=== PATIENT | male | born 1955 | race Caucasian/White ===

== ENCOUNTER 2020-07-18 11:19 | Inpatient (IN) | payer OTHER, MEDICARE, SELFPAY ==
[2020-07-18] VITALS (22 sets, daily range): BP systolic 107–141; BP diastolic 80–92; PULSE 79–98; RESP 12–26; TEMP 36.1–37.1; O2SAT 90–99; BMI 33.5
--- NOTE | ~2020-07-18 | XR_ITS ---
XR chest 1V portable DATE: 07/19/2020 12:32 INDICATION: Shortness of breath TECHNIQUE: Portable AP chest on 07/19/2022 at 1226 hours COMPARISON: None FINDINGS: There are patchy bilateral pulmonary infiltrates, predominating in the central and lower shilpa ng zones, right greater than left. There is mild prominence of the minor fissure and there are some K [place]ley B-lines bilaterally, suggesting subpleural and pulmonary interstitial edema. The findings may b e due to pulmonary edema. Bilateral pneumonia however is also a consideration in the differential alyson gnosis. Clinical correlation is advised. Aortic arch calcification and mild aortic unfolding. No pleural effusion. No pneumothorax. Degenerative spurring of the thoracic spine. IMPRESSION: Bilateral primarily central and lower lung zone infiltrates, right greater than left; dif ferential diagnosis includes pulmonary edema and pneumonia Reviewed, dictated and finalized at location B. OR PIER LABORER IMPRESSION: Bilateral primarily central and lower lung zone infiltrates, right greater than left; differential diagnosis includes pulmonary edema and pneumoni a
--- NOTE | ~2020-07-18 | US_ITS ---
EXAMINATION: US art doppler w press LE BI DATE: 07/20/2020 17:17 SPORTS DOCTOR INDICATION: Decreased pulses. TECHNIQUE: Segmental pressures and plethysmographic and Doppler waveforms of the brachial and lower e xtremity arteries were obtained. COMPARISON: None. FINDINGS: Right and left brachial artery pressures of 107 mm Hg and 112 mm Hg, respectively, are concordant (no rmal difference <= 30 mmHg). The right high-thigh pressure index is 1.29 (normal > 1.2). The right ankle-brachial index (MARTHA) is 1 .15 (normal >= 0.9-1.0). The right great toe-brachial index (TBI) is 1.21 (normal >= 0.60). The right lower extremity segmental pressure gradients are normal (normal gradients <= 20-30 mmHg between britney cent levels on the same leg or the same levels on the two legs). Arterial Doppler waveforms are bipha sic and triphasic. The left high-thigh pressure index is 1.26. The left MARTHA is 1.18. The left TBI is 1.5 to. The left lo wer extremity segmental pressure gradients are normal. Arterial Doppler waveforms are biphasic and tr iphasic. IMPRESSION: 1. Unremarkable lower extremity arterial Doppler study. Reviewed, dictated and finalized at location A. TS DOCTOR
--- NOTE | 2020-07-18 11:20 | ECG_ITS ---
Measurements Intervals [place] Rate: 90 P: 47 WI: 187 QRS: -37 QRSD: 106 T: 53 QT: 371 QTc: 455 Interpretive Statements SINUS RHYTHM WITH MARKED SINUS ARRHYTHMIA LEFT AXIS DEVIATION LOW QRS VOLTAGE IN PRECORDIAL LEADS EXTENSIVE ANTERIOR ST ELEVATION MYOCARDIAL INFARCT, ACUTE HIGH LATERAL ST ELEVATION MYOCARDIAL INFARCT- ACUTE ABNORMAL ECG Electronically Signed On 07-18-2020 11:47:22 UR COORDINATOR by Jossue Lopes D.O.
--- NOTE | 2020-07-18 11:26 | PC.NURSE ---
Heparin given via IVP 5,000 units per STEMI protocol by Tessy Ceja RN. Pt. does not take any blood thinners or have contraindications for heparin.
--- NOTE | 2020-07-18 11:29 | ED.CHESTPAIN ---
HPI - Chest Pain General Chief Complaint: Chest Pain Stated Complaint: STEMI Time Seen by Provider: 07/18/20 11:24 Source: patient Mode of arrival: EMS Limitations: no limitations History of Present Illness HPI narrative: 64 years old white male developed severe chest pain 1 hour prior to arrival to the emergency room. Patient denies any medical history. Patient does not take any medications at home. Patient does not smoke or drink. Patient denies any family history of coronary artery disease. MD complaint: chest pain Review of Systems Review of Systems: Narrative: CONSTITUTIONAL: Denies fever, chills, or sweats. EYES: Denies visual changes, redness, or discharge. ENT: Denies rhinorrhea, congestion, sore throat, or otalgia. CARDIOVASCULAR: Denies chest pain, palpitations, or edema. RESPIRATORY: Denies cough or dyspnea. GASTROINTESTINAL: Denies abdominal pain, nausea, vomiting, or diarrhea. GENITOURINARY: Denies dysuria or hematuria. SKIN: Denies rash or itching. MUSCULOSKELETAL: Denies back pain, joint pain, or myalgia. NEUROLOGIC: Denies headache, numbness, or weakness. PSYCHIATRIC: Denies anxiety or depression. PMFSH Social History Social History Gender identity (if verbalized by the patient): Male Exam Narrative: Exam Narrative: General appearance: Well-developed, well-nourished Skin: Normal color Head: Normocephalic, nontraumatic Eyes: Clear conjunctiva ENT: Oropharynx normal, ears normal, nose normal Neck: Supple, nontender Chest and respiratory: Airway patent, no respiratory distress, no accessory muscle use Heart: Regular rate/rhythm Abdomen: Soft, nontender, no organomegaly, quiet bowel sounds Vascular: Normal peripheral pulses, normal capillary refill. Musculoskeletal: Normal range of motion, nontender back Neurologic: Alert and oriented ?3, HAND CUTTER is normal as tested, no gross motor deficit Course Course Emergency Course: Stable Vital Signs Vital signs: Vital Signs Temperature 36.5 C 07/18/20 11:24 Pulse Rate 94 07/18/20 11:24 Respiratory Rate 18 07/18/20 11:24 Blood Pressure 129/82 07/18/20 11:24 Pulse Oximetry 95 07/18/20 11:24 Temperature 36.5 C 07/18/20 11:24 Pulse Rate 94 07/18/20 11:24 Respiratory Rate 18 07/18/20 11:24 Blood Pressure 129/82 07/18/20 11:24 Pulse Oximetry 95 07/18/20 11:24 MDM - Chest Pain MDM Narrative Medical decision making narrative: Patient presents to the ED with STEMI Dr. Mantilla was in the emergency room waiting for the patient on arrival Patient going to cardiac cath right away. ECG Data EKG #1: Interpretation: Anterolateral ST elevation consistent with STEMI Critical Care Time Critical Care Time Critical Care Time: Yes Total Critical Care Time: 15 Discharge Plan Discharge Clinical Impression: ST elevation (STEMI) myocardial infarction Qualifiers: Involved coronary artery: unspecified coronary artery Qualified Code(s): I21.3 - ST elevation (STEMI) myocardial infarction of unspecified site Patient Disposition: Still a Patient Condition: Stable Quality HEART score for chest pain patients History: highly suspicioius ECG: significant ST depression Age: > or = to 65 years Risk factors: no risk factors known Troponin: > or = to 3x normal limit Heart score: 8
--- NOTE | 2020-07-18 11:32 | P.SEDATION_ITS ---
Moderate Sedation Note-Pt Data Patient Data Diagnosis: acute anterior wall myocardial infarction Present Complaint: chest pain Procedure to be performed/Plan: emergency left heart catheterization Current Medications: no medication Sedation/Anesthesia: No previous sedation/anesthesia problems (including family history). [facility] Social History Social History Gender identity (if verbalized by the patient): Male Mod Sed Physical Exam Physical Exam Pre Procedural Exam: Normal: Neck, Throat, Airway, Lungs, Heart Size, Heart Rate, Heart Rhythm, Neuro Exam and Extremities and Variation: Appearance ( 64-year-old white male appearing bit older than his stated age) Hours since solid foods: 0 Hours since liquid intake: 0 Internal Medicine - PN: Obj Da Vital Signs Vital Signs: Vital Signs - 24 hr 07/18/20 11:24 Temperature 36.5 C Pulse Rate 94 Respiratory Rate 18 Blood Pressure 129/82 Pulse Oximetry 95 ASA Classification/Sedation ASA Classification/Sedation ASA Class: IV Emergent: Yes Risks: Risks, benefits and alternatives explained and patient/family accepted plan for sedation. Patient re-evaluated immediately prior to sedation.
--- NOTE | 2020-07-18 11:35 | P.HP_ITS ---
H&P: HPI History of Present Illness Date/Time: 07/18/20 11:35 Cheif Complaint: chest pain Narrative: Steven Herrera is a 64 year old male no previous history of significant medical problems who began to experience chest pain about 1 hour ago. He is being brought to the hospital by EMS where ECG was found show evidence of acute anterior wall infarction. He denies any prior cardiac history and he reports no history of significant medical problems prior to this specifically denies hypertension diabetes or dyslipidemia. He has never been a smoker. Review of Systems Review of Systems: ROS unobtainable: Yes unobtainable due to medical condition PMFSH Social History Social History Gender identity (if verbalized by the patient): Male Meds Vital Signs Vital Signs - 24 hr 07/18/20 11:24 Temperature 36.5 C Pulse Rate 94 Respiratory Rate 18 Blood Pressure 129/82 Pulse Oximetry 95 Exam Const: General: in distress and uncomfortable Other: Well-developed well- nourished white male moderate distress with chest pain HENMT: Mouth: Yes moist mucous membranes Eyes: Sclera: sclerae normal Pupils: Equal, round and reactive pupils present Neck: Neck: supple and no JVD Resp: Effort & Inspection: normal respiratory effort Auscultation: clear to auscultation bilaterally Cardio: Rate: regular rate Rhythm: regular rhythm Other: no significant murmur S4 is audible GI: GI Palp: Yes Soft to palpation Auscultation: normal bowel sounds Skin: General skin exam: normal color Neuro: Cognition (Neuro): normal cognition Extrem: General: normal to inspection Assessment and Plan Additional Plan 64-year-old man apparently previously reasonably healthy presenting with acute anterolateral wall myocardial infarction. Preparations are now being made for emergency angiography and revascularization Cruzito Mantilla MD [facility]
--- NOTE | 2020-07-18 12:22 | WPDCARDPROC ---
Cardiac Cath Procedure Note Date of procedure:: 07/18/20 Performing physician:: Cruzito Mantilla MD Indication:: acute anterior wall infarction Brief clinical history:: 64-year-old man without previous medical or cardiac history presents with chest pain starting about 2 hours prior to presentation and ECG demonstrates acute anterolateral infarction. Procedure Procedure performed:: Emergency coronary angiography emergency PCI (ERNA) to ostial LAD segment left ventriculography Sedation/Medication given:: fentanyl 50 mg Versed 2 mg case start time 11:40 a.m. case end time 12:21 p.m. Access site:: right femoral artery Estimated blood loss:: 30-40 cc Procedure note:: patient was brought to the cardiac catheterization lab in the emergent setting described above. The right femoral triangle was prepared and draped in the usual fashion. Anesthesia was provided with 1% lidocaine infiltrated locally. Using the modified Seldinger technique a 6 Albanian sheath was placed into the femoral artery. After this a 5 Albanian JR4 catheter was advanced over the guidewire into the aorta but it was clear that the guidewire was finding on the catheter. Fluoroscopy down in the iliofemoral system demonstrated significant tortuosity which was the cause of this. I then over the 0.035 Saleem wire advanced a long 25 cm 6 Albanian sheath into the iliofemoral system which straightened out the tortuosity. Then a new JR4 catheter was easily advanced into the aortic root and angiography was performed of the right coronary artery. Following this a 6 Albanian CLS 3.5 guiding catheter was advanced into the aortic root engage the left coronary where angiography was performed. The cineangiograms were then reviewed. PCI of the occlusion of the LAD at the ostium was recommended carried out as detailed below. Following PCI as detailed below a 5 Albanian angled pigtail catheter was placed into the left ventricle where hemodynamics were measured pullback pressures across the aortic valve and left ventriculography was injected in the are AO projection. The case was then terminated. The patient was taken to the ICU for post AR PCI recovery. in the emergency department the patient received aspirin and heparin. 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 Findings:: Hemodynamics: Central aortic pressure was 104/65 left ventricle 102/13 end-diastolic pressure 30. a Left main coronary artery is nicely patent left anterior descending is 100% occluded just at the ostium there is a tiny stump of the LAD coming off the left main but the remainder of the LAD is 100% occluded with no antegrade flow. a The circumflex consists of a large proximal OM branch and a AV groove portion with smaller marginals. The 1st marginal takes off essentially as a ramus intermedius. The circumflex system is free of significant disease. Right coronary artery is large in caliber dominant to the posterior circulation the RCA has minimal luminal irregularities but angiographically free of significant disease. Intervention: The LAD was wired using a 0.014 BMW coronary guidewire. The lesion was pre-dilated using a 2.5 x 20 mm emerge PTCA balloon. Following this there was LAYA 1 flow in the LAD with large size thrombotic burden in the proximal segment of the vessel. Following that I withdrew the balloon and made several passes with an export thrombus extraction catheter removing a good deal of thrombus from the vessel. Following this angiographically the LAD was patent there was brisk LAYA 3 flow down to the apex and was a high-grade stenosis of 90% persistently. This lesion was then dilated with a larger 3 x 20 mm emerge balloon and then stented using a 3.5 x 23 mm Debbie Xience drug-eluting stent with a very nice anatomic result the stent was deployed at 12 atmospheres following which the vessel was widely patent wi
--- NOTE | 2020-07-18 12:23 | ECG_ITS ---
Measurements Intervals [place] Rate: 94 P: NM: 0 QRS: 267 QRSD: 121 T: 89 QT: 385 QTc: 482 Interpretive Statements SINUS RHYTHM CHANGES TO ACCLERATED JUNCTIONAL RHYTHM WITH VENTRICULAR BIGEMINY VENTRICULAR PREMATURE COMPLEXES CANNOT RULE OUT SEPTAL INFARCT, AGE INDETERMINATE ANTEROLATERAL ST ELEVATION MYOCARDIAL INFARCTION , PROBABLY RECENT BASELINE ARTIFACT VENTRICULAR PREMATURE COMPLEXES CANNOT RULE OUT SEPTAL INFARCT, AGE INDETERMINATE ANTEROLATERAL ST ELEVATION MYOCARDIAL INFARCTION , PROBABLY RECENT BASELINE ARTIFACT- II, III, AVR, AVL, AVF ABNORMAL ECG Electronically Signed On 07-18-2020 13:35:02 DIRECTOR OF ELEMENTARY EDUCATION by Jossue Lopes D.O.
[2020-07-18 13:19] LABS: Basophils Percent Auto 0.4 % (0.2-1.2); Eosinophils Absolute Auto 0.1 K/mm3 (0-0.3); Eosinophils Percent Auto 0.7 % (0-4.4); Hematocrit 48.1 % (42.0-52.0); Immature Granulocyte Absolute 0.04 K/mm3 (0.00-0.031); Immature Granulocyte Percent A 0.4 % (0-0.5); Lymphocytes Absolute Auto 1.14 K/mm3 (0.9-3.2); Lymphocytes Percent Auto 10.7 % (18.3-44.2); Mean Corpuscular HGB Conc 33.3 g/dl (32-36); Mean Corpuscular Hemoglobin 29.6 pg (26-34); Mean Corpuscular Volume 89.1 fl (80-100); Mean Platelet Volume 9.3 fl (7.4-10.4); Monocytes Absolute Auto 0.5 K/mm3 (0.1-0.6); Monocytes Percent Auto 4.7 % (2.6-8.5); Neutrophils Absolute Auto 8.9 K/mm3 (1.3-6.7); Neutrophils Percent Auto 83.1 % (45.5-73.1); Platelet Count Result 204 k/mm3 (150-375); Red Cell Distribution Width 12.9 % (11.5-14.5); White Blood Count 10.6 K/mm3 (4.5-10.0)
--- NOTE | 2020-07-18 13:19 | WPDCNINT ---
Assessment and Plan Assessment and plan (1) ST elevation (STEMI) myocardial infarction: Qualifiers: Involved coronary artery: unspecified coronary artery Qualified Code(s): I21.3 - ST elevation (STEMI) myocardial infarction of unspecified site Code(s): I21.3 - ST elevation (STEMI) myocardial infarction of unspecified site Status: Acute Assessment and Plan: EKG in the ER showed anterior wall ST-elevation CA, patient was taken for emergent cardiac catheterization which showed 100% occlusion of LAD status post PCI, ERNA x1 to a culprit vessel with excellent patency and LAYA 3 flow postprocedure Cardiology following the patient closely -continue aspirin, Brilinta, carvedilol, losartan, rosuvastatin -will check lipid panel -will order echocardiogram Additional Plan Discussed with patient updated with his condition and plan of care. He is aware that he received 1 stent to the LAD which was 100% occluded Code status: Full code Critical care time spent: 39 minutes Due to a high probability of clinically significant, life threatening deterioration, the patient required my highest level of preparedness to intervene emergently and I personally spent this critical care time directly and personally managing the patient. This critical care time included obtaining a history; examining the patient; pulse oximetry; ordering and review of studies; arranging urgent treatment with development of a management plan; evaluation of patient's response to treatment; frequent reassessment; and discussions with other providers. It was exclusive of separately billable procedures and treating other patients and teaching time. Please see Assessment and Plan section and the rest of the note for further information on patient assessment and treatment Geochemist Consult Note Consult date: 07/18/20 Time Seen: 13:03 Reason for consult: CA with 100% occlusion of LAD status post successful PCI with ERNA x1 HPI: Steven Herrera is a 64 year old male with no past medical history and does not take any medications at home, presented to the ED wanted to the ED with severe substernal chest pain around 2 hours prior to presentation, EKG in the ER showed anterior wall ST-elevation CA. Denies any previous cardiac history. Denies any tobacco use (has never been a smoker), illicit drug use, states he has a drink of alcohol once a month. 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 Patient was taken for emergent cardiac catheterization which showed 100% occlusion of LAD status post PCI, ERNA x1 to a culprit vessel with excellent patency and LAYA 3 flow postprocedure. Patient was transferred to the ICU for further management Patient seen and examined ICU. Remains awake, alert, oriented x3. Dynamically stable, complains of chest pain 1/10 in intensity no radiation, no shortness of breath. Patient very cooperative and pleasant. Review of Systems Review of Systems: All systems reviewed & are unremarkable except as noted in HPI and below PMFSH Social History Social History Gender identity (if verbalized by the patient): Male Meds Home Medications and Allergies Home Medications Medication Instructions Recorded Confirmed Type No Home Medications 07/18/20 07/18/20 History Allergies Allergy/AdvReac Type Severity Reaction Status Date / Time No Known Allergies Allergy Verified 07/18/20 11:38 Vital Signs Vital Signs - 24 hr 07/18/20 11:22 07/18/20 11:24 07/18/20 11:30 Temperature 97.7 F Pulse Rate 95 94 97 Respiratory Rate 18 12 Blood Pressure 129/82 129/82 Pulse Oximetry 95 99 Exam Const: General: comfortable and no acute distress HENMT: Mouth: Yes moist mucous membranes Eyes: Sclera: sclerae normal Pupils: Equal, round and reactive pupils present Neck: Neck: supple Resp: Effort & Inspection: normal respiratory effort Auscultation: clear to auscultation bilaterally Cardio: Rate: regular rate GI: Inspection: non-distended
[2020-07-18 13:32] LABS: Prothrombin Time 65.7 Seconds (11.1-14.7)
[2020-07-18 13:39] LABS: Alanine Aminotransferase 31 U/L (4-50); Albumin Level 3.8 g/dL (3.5-5.1); Alkaline Phosphatase 68 U/L (38-126); Anion Gap 8 mmol/L (8-16); Aspartate Amino Transferase 124 U/L (17-59); Bilirubin,Total 0.6 mg/dL (0.2-1.3); Blood Urea Nitrogen 18 mg/dL (9-20); Calcium 8.6 mg/dL (8.4-10.2); Carbon Dioxide 24 mmol/L (22-30); Chloride 108 mmol/L (98-107); Cholesterol 211 mg/dL (0-200); Estimated CRCL calculation 86 ml/min; Estimated Glomerular Filt Rate > 60; Glucose 118 mg/dL (75-110); HDL Direct 39 mg/dL; Sodium 140 mmol/L (137-145); Triglycerides 83 mg/dL (<150)
[2020-07-18] MEDS: SODIUM CHLORIDE 0.9% IV 1,000 ML 125 ML IV CONT (13:39)
[2020-07-18 13:49] LABS: LDL Cholesterol Direct 168 mg/dL
[2020-07-18 13:54] LABS: INR 7.9
--- NOTE | 2020-07-18 13:54 | PC.NURSE ---
1350- angiomax drip completed
[2020-07-18 13:57] LABS: Partial Thromboplastin Time > 200.0 SECONDS (22.3-36.8)
[2020-07-18] MEDS: MAGNESIUM SULF 1 GM/D5W 100 ML 1 GM/100 ML BAG IVPB (15:35)
[2020-07-18 16:35] LABS: Activated Clotting Time 153 sec (74-137)
[2020-07-18 16:49] LABS: Troponin I > 80.000 ng/mL (0.000-0.034)
[2020-07-18 18:36] LABS: Partial Thromboplastin Time 49.2 SECONDS (22.3-36.8)
[2020-07-18 19:53] LABS: Troponin I > 80.000 ng/mL (0.000-0.034)
[2020-07-18 21:20] LABS: Partial Thromboplastin Time 33.8 SECONDS (22.3-36.8)
[2020-07-18] MEDS: TICAGRELOR 90 MG TABLET PO (23:50)
[2020-07-18] MEDS: carvediloL 6.25 MG TABLET PO (23:51)
[2020-07-19] VITALS (28 sets, daily range): BP systolic 88–146; BP diastolic 8–96; PULSE 77–115; RESP 14–31; TEMP 36.6–37; O2SAT 91–97
--- NOTE | 2020-07-19 05:11 | ECG_ITS ---
Measurements Intervals [place] Rate: 94 P: 60 DE: 182 QRS: -38 QRSD: 94 T: 80 QT: 321 QTc: 402 Interpretive Statements SINUS RHYTHM LEFT AXIS DEVIATION LOW QRS VOLTAGE- DIFFUSE LEADS CANNOT RULE OUT SEPTAL INFARCT, AGE INDETERMINATE ANTERIOR ST ELEVATION MYOCARDIAL INFARCT, PROBABLY RECENT BASELINE WANDER- AVL, V6 ABNORMAL ECG Electronically Signed On 07-19-2020 10:14:52 ELECTRONIC DATA PROCESSING AUDITOR by Jossue Lopes D.O.
[2020-07-19 05:17] LABS: Anion Gap 9 mmol/L (8-16); Blood Urea Nitrogen 19 mg/dL (9-20); Calcium 8.7 mg/dL (8.4-10.2); Carbon Dioxide 27 mmol/L (22-30); Chloride 105 mmol/L (98-107); Estimated CRCL calculation 86 ml/min; Estimated Glomerular Filt Rate > 60; Glucose 148 mg/dL (75-110); Magnesium 2.4 mg/dL (1.6-2.3); Potassium 3.5 mmol/L (3.4-5.0); Sodium 141 mmol/L (137-145)
[2020-07-19] MEDS: ROSUVASTATIN 10 MG TABLET 20 MG PO (07:50)
[2020-07-19] MEDS: ASPIRIN 81 MG CHEWABLE TABLET PO (07:50)
[2020-07-19] MEDS: TICAGRELOR 90 MG TABLET PO ×2 (07:50→20:44)
[2020-07-19] MEDS: PANTOPRAZOLE 40 MG TABLET PO (07:50)
[2020-07-19] MEDS: carvediloL 6.25 MG TABLET PO ×2 (07:51→20:44)
[2020-07-19] MEDS: LOSARTAN POTASSIUM 12.5 MG TABLET PO (07:51)
--- NOTE | 2020-07-19 08:00 | ECHO_ITS ---
Patient Info Name: Steven Herrera Age: 64 years : 1955 Gender: Male Ht: 70 in Wt: 225 lbs BSA: 2.28 m2 HR: 93 bpm BP: 119 / 79 mmHg Heart Rhythm: Sinus Rhythm Technical Quality: Good Exam Date: 07/19/2020 8:32 AM Exam Location: [facility] Patient Status: Inpatient Admit Date: 07/18/2020 Staff Ordering Physician: Sadie Gipson MD Principal Planner: Daniel Jansen, JENISE, RT Attending Provider: Cruzito Mantilla MD Referring Physician: Leonela HOWELL; Exam Type: CA echo dop color flow w con Study Info Indications I50.9 - Heart failure, unspecified Complete two-dimensional, color flow and Doppler transthoracic echocardiogram is performed with contrast to opacify the left ventricle and to improve the deliniation of the left ventricle endocardial borders. Strain analysis performed. Summary 1. Left ventricular chamber dimension is normal. 2. Left ventricular systolic function is moderately reduced, estimated at 35-40%. 3. There is mildly increased left ventricular wall thickness. 4. The left ventricular diastolic function is grade II diastolic dysfunction. 5. Global longitudinal strain is abnormal at -7 %. 6. The apex, and mid anteroseptal are akinetic. 7. The mid inferior wall, mid anterior wall, basal inferoseptal, mid inferoseptal, and basal anteroseptal are hypokinetic. 8. There is moderate aortic valve sclerosis. 9. There is mild mitral valve regurgitation. 10. There is mild tricuspid valve regurgitation. 11. There is mild pulmonic regurgitation. 12. Complete two-dimensional, color flow and Doppler transthoracic echocardiogram is performed with contrast to opacify the left ventricle and to improve the deliniation of the left ventricle endocardial borders. 13. Strain analysis performed. Left Ventricle Left ventricular chamber dimension is normal. Left ventricular systolic function is moderately reduced, estimated at 35-40%. There is mildly increased left ventricular wall thickness. The left ventricular diastolic function is grade II diastolic dysfunction. Global longitudinal strain is abnormal at -7 %. The apex, and mid anteroseptal are akinetic. The mid inferior wall, mid anterior wall, basal inferoseptal, mid inferoseptal, and basal anteroseptal are hypokinetic. All other hig[place] appear normal. Right Ventricle Right ventricular chamber dimension is normal. Right ventricular systolic function is normal. Left Atria Left atrial chamber dimension is normal. Right Atria Right atrial chamber dimension is normal. Atrial Septum Intact interatrial septum visualized by color flow imaging. Aortic Valve The aortic valve is trileaflet. There is moderate aortic valve sclerosis. There is no aortic valve stenosis. There is trace aortic valve regurgitation. Pulmonic Valve The pulmonic valve is normal. There is no pulmonic valve stenosis. There is mild pulmonic regurgitation. Mitral Valve The mitral valve has thickened leaflets. There is no mitral valve stenosis. There is mild mitral valve regurgitation. Tricuspid Valve The tricuspid valve leaflets are normal. There is no significant tricuspid valve stenosis. There is mild tricuspid valve regurgitation. Pericardium/Pleural The pericardium appears normal. There is no pericardial effusion. Inferior Vena Cava Dilated inferior vena cava with <50% collapse upon inspiration consistent with elevated right atrial pressure, 15 mmHg. Aorta The aortic root siz
[2020-07-19] MEDS: POTASSIUM CHLORIDE 20 MEQ PACKET (FOR LIQUID) 40 MEQ PO (10:09)
--- NOTE | 2020-07-19 12:08 | PM.PNCARD ---
Progress Note: A&P Assessment and Plan (1) ST elevation (STEMI) myocardial infarction: Qualifiers: Involved coronary artery: unspecified coronary artery Qualified Code(s): I21.3 - ST elevation (STEMI) myocardial infarction of unspecified site Code(s): I21.3 - ST elevation (STEMI) myocardial infarction of unspecified site Status: Acute Assessment and Plan: Acute anterior lateral wall myocardial infarction 07/18/2020. Taken emergently to the cardiac catheterization lab by Dr. Mantilla with a significant findings of:Acute anterior wall myocardial infarction resulting from abrupt thrombotic occlusion of the left anterior descending right at the ostium off the left main. No significant left main circumflex or right coronary disease. Akinetic hopefully mostly stunned anterior wall with low ejection fraction and high left ventricular filling pressures. He proceeded on to successful PCI using the 3.5 x 23 mm Debbie stent resulting in excellent patency of the LAD is a very nice angiographic result with LAYA 3 flow restored down to the apex. Started on aspirin, Brilinta, rosuvastatin, carvedilol and losartan. Troponins elevated greater than 80. Will recheck one in the morning. Nonsustained ventricular tachycardia after procedure. Asymptomatic Potassium within normal limits. 1 g of magnesium given. Nonsustained VT this morning 5-6 beats which were asymptomatic. Potassium is being supplemented. Check BMP in the morning. Feels congested this morning. Will check a chest x-ray. Echocardiogram is pending. Number of questions were answered. 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 His is trying to locate his insurance card Additional Plan Increase activity. Okay to downgrade to week IMU Plan discussed Dr. Serrano [id number] 07/19/2020 Subjective Date/time seen: 07/19/20 12:08 Interval history: Follow-up for: STEMI-acute anterior myocardial infarction Date of service: 07/19/2020 Subjective: Feels congested. Feels slightly short of breath. Denied any further chest discomfort. No dizziness or lightheadedness but has not been out bed. Review of Systems Constitutional: Constitutional: Reports fatigue Eyes: Eyes: Denies blind spots and Denies blurry vision ENT: Reports Normal hearing present and Denies epistaxis Cardiovascular: Cardiovascular: Denies chest pain, Denies rapid heart rate and Denies lightheadedness Respiratory: Respiratory: Reports chest congestion and Reports cough (Clear secretions) Gastrointestinal: Gastrointestinal: Denies abdominal pain and Denies heartburn Genitourinary: Genitourinary: Denies hematuria Musculoskeletal: Musculoskeletal: Denies back pain and Denies myalgias Integumentary/Breasts: Skin/Breast: Denies unusual bruising Neurologic: Denies Abnormal speech present, Denies abnormal gait, Denies headache(s) and Denies numbness Psychiatric: Psychiatric: Denies anxiety and Denies depression Endocrine: Endocrine: Denies excessive sweating and Denies palpitations Hematologic/Lymphatic: Hematologic/Lymphatic: Denies easy bleeding and Denies easy bruising Allergic/Immunologic: Allergic/Immunologic: Denies GI upset with certain foods Exam Const: General: cooperative and no acute distress Nutritional Appearance: overweight Orientation/consciousness: patient oriented x3 Limitations: no limitations HENMT: Mouth: Yes moist mucous membranes Eyes: Sclera: sclerae normal Pupils: Equal, round and reactive pupils present Neck: Neck: supple and no JVD Resp: Effort & Inspection: normal respiratory effort Auscultation: crackles on the right at the base and no wheezes Cardio: Jugular venous distension: no JVD Rate: regular rate Rhythm: regular rhythm Heart sounds: no murmurs Peripheral pulses: Peripheral pulses 2+ throughout Other: GI: GI Palp: Yes Soft to palpation Auscultation: normal bowel sounds Skin: Gener
[2020-07-19] MEDS: FUROSEMIDE INJ 40 MG/4 ML VIAL 20 MG IV PUSH ×2 (13:00→16:23)
[2020-07-19] MEDS: POTASSIUM CHLORIDE 20 MEQ TABLET 40 MEQ PO (13:00)
--- NOTE | 2020-07-19 13:37 | WPDINTPN ---
Progress Note: A&P Assessment and Plan (1) ST elevation (STEMI) myocardial infarction: Qualifiers: Involved coronary artery: unspecified coronary artery Qualified Code(s): I21.3 - ST elevation (STEMI) myocardial infarction of unspecified site Code(s): I21.3 - ST elevation (STEMI) myocardial infarction of unspecified site Status: Acute Assessment and Plan: EKG in the ER showed anterior wall ST-elevation [place], patient was taken for emergent cardiac catheterization which showed 100% occlusion of LAD status post PCI, ERNA x1 to a culprit vessel with excellent patency and LAYA 3 flow postprocedure. Akinetic anterior wall with low ejection fraction, likely related to stunned heart and high left ventricular filling pressures Cardiology following the patient closely -continue aspirin, Brilinta, carvedilol, losartan, rosuvastatin -echocardiogram has been obtained, report pending (2) Hyperlipidemia: Code(s): E78.5 - Hyperlipidemia, unspecified Status: Acute Assessment and Plan: Continue rosuvastatin Additional Plan Discussed with patient updated with his condition and plan of care. He is aware that he received 1 stent to the LAD which was 100% occluded Code status: Full code Critical care time spent: 31 minutes Due to a high probability of clinically significant, life threatening deterioration, the patient required my highest level of preparedness to intervene emergently and I personally spent this critical care time directly and personally managing the patient. This critical care time included obtaining a history; examining the patient; pulse oximetry; ordering and review of studies; arranging urgent treatment with development of a management plan; evaluation of patient's response to treatment; frequent reassessment; and discussions with other providers. It was exclusive of separately billable procedures and treating other patients and teaching time. Please see Assessment and Plan section and the rest of the note for further information on patient assessment and treatment Subjective Date/time seen: 07/19/20 13:37 Interval history: Reason for consult: WA with 100% occlusion of LAD status post successful PCI with ERNA x1 07/19: Patient denies any chest pain, complains of mild shortness of breath more likely nasally congested. Appetite has adequate. Skin him slightly to which was repleted. Patient is hemodynamically stable. Patient has been having some PVCs and V-tach 5-6 beat this morning he was asymptomatic. Review of Systems Review of Systems: All systems reviewed & are unremarkable except as noted in HPI and below Exam Const: General: comfortable and no acute distress HENMT: Mouth: Yes moist mucous membranes Eyes: Sclera: sclerae normal Pupils: Equal, round and reactive pupils present Neck: Neck: supple Resp: Effort & Inspection: normal respiratory effort Auscultation: clear to auscultation bilaterally Cardio: Rate: regular rate GI: Inspection: non-distended GI Palp: Yes Soft to palpation and No Tenderness to palpation present (GI) Auscultation: bowels sounds not normal Other: Protuberant abdomen : Other: Deferred Skin: General skin exam: normal color and no rashes or lesions noted Neuro: Cranial nerves: Yes Equal, round and reactive pupils present Cognition (Neuro): normal cognition Speech: normal speech Other: Patient is awake, alert oriented x3, nonfocal Extrem: General: normal to inspection, no edema and no pedal edema Other: Right groin site without evidence of ecchymosis or hematoma. Psych: Mental Status: mental status grossly normal Affect: normal affect Objective Data Vital Signs Vital Signs: Vital Signs - 24 hr 07/18/20 13:45 07/18/20 14:00 07/18/20 14:32 Temperature Pulse Rate 95 91 98 Respiratory Rate 24 H 24 H 21 H Blood Pressure 113/81 107/80 122/89 Pulse Oximetry 90 92 94 07/18/20 16:00 07/18/20 17:00 07/18/20 18:00 Tem[place]a
[2020-07-20] VITALS (17 sets, daily range): BP systolic 90–119; BP diastolic 58–82; PULSE 81–108; RESP 16–18; TEMP 36.1–37.1; O2SAT 93–98
[2020-07-20 05:04] LABS: Hematocrit 47.3 % (42.0-52.0); Hemoglobin 15.7 g/dL (14.0-18.0); Mean Corpuscular HGB Conc 33.2 g/dl (32-36); Mean Corpuscular Hemoglobin 29.5 pg (26-34); Mean Corpuscular Volume 88.7 fl (80-100); Mean Platelet Volume 9.5 fl (7.4-10.4); Platelet Count Result 210 k/mm3 (150-375); Red Blood Count 5.33 M/mm3 (4.6-6.20); Red Cell Distribution Width 13.2 % (11.5-14.5); White Blood Count 13.5 K/mm3 (4.5-10.0)
[2020-07-20 05:20] LABS: Anion Gap 0 mmol/L (8-16); Blood Urea Nitrogen 28 mg/dL (9-20); Calcium 8.8 mg/dL (8.4-10.2); Carbon Dioxide 35 mmol/L (22-30); Chloride 104 mmol/L (98-107); Estimated CRCL calculation 60 ml/min; Estimated Glomerular Filt Rate 55; Glucose 120 mg/dL (75-110); Magnesium 2.3 mg/dL (1.6-2.3); Potassium 3.9 mmol/L (3.4-5.0); Sodium 139 mmol/L (137-145)
--- NOTE | 2020-07-20 08:00 | ECG_ITS ---
Measurements Intervals [place] Rate: 96 P: 51 WI: 179 QRS: -47 QRSD: 96 T: 52 QT: 319 QTc: 404 Interpretive Statements SINUS RHYTHM SUPRAVENTRICULAR TRIGEMINY LEFT AXIS DEVIATION LOW QRS VOLTAGE- DIFFUSE LEADS CANNOT RULE OUT SEPTAL INFARCT, AGE INDETERMINATE ANTEROLATERAL INFARCT, PROBABLY RECENT BASELINE ARTIFACT- I, II ,III, AVR, AVL, AVF ABNORMAL ECG Electronically Signed On 07-20-2020 9:30:02 [employer] by Jossue Lopes D.O.
[2020-07-20] MEDS: TICAGRELOR 90 MG TABLET PO ×2 (08:50→21:02)
[2020-07-20] MEDS: carvediloL 6.25 MG TABLET PO (08:50)
[2020-07-20] MEDS: ROSUVASTATIN 10 MG TABLET 20 MG PO (08:50)
[2020-07-20] MEDS: ASPIRIN 81 MG CHEWABLE TABLET PO (08:50)
[2020-07-20] MEDS: PANTOPRAZOLE 40 MG TABLET PO (08:50)
[2020-07-20] MEDS: LOSARTAN POTASSIUM 12.5 MG TABLET PO (08:50)
--- NOTE | 2020-07-20 10:39 | PM.PNCARD ---
Progress Note: A&P Assessment and Plan (1) ST elevation (STEMI) myocardial infarction: Qualifiers: Involved coronary artery: unspecified coronary artery Qualified Code(s): I21.3 - ST elevation (STEMI) myocardial infarction of unspecified site Code(s): I21.3 - ST elevation (STEMI) myocardial infarction of unspecified site Status: Acute Assessment and Plan: Acute anterior lateral wall myocardial infarction 07/18/2020. Taken emergently to the cardiac catheterization lab by Dr. Mantilla with a significant findings of:Acute anterior wall myocardial infarction resulting from abrupt thrombotic occlusion of the left anterior descending right at the ostium off the left main. No significant left main circumflex or right coronary disease. Akinetic hopefully mostly stunned anterior wall with low ejection fraction and high left ventricular filling pressures. He proceeded on to successful PCI using the 3.5 x 23 mm Debbie stent resulting in excellent patency of the LAD is a very nice angiographic result with LAYA 3 flow restored down to the apex. Started on aspirin, Brilinta, rosuvastatin, carvedilol and losartan. Troponins elevated greater than 80. Will recheck one in the morning. Nonsustained ventricular tachycardia after procedure. Asymptomatic Potassium within normal limits. repeat basic metabolic panel and magnesium level morning Number of questions were answered. 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 His is trying to locate his insurance card (2) Ischemic cardiomyopathy: Code(s): I25.5 - Ischemic cardiomyopathy Status: Acute Assessment and Plan: Moderate (3) Acute systolic (congestive) heart failure: Code(s): I50.21 - Acute systolic (congestive) heart failure Status: Acute Assessment and Plan: much improved from yesterday. Will start him on 20 mg of furosemide daily. (4) Hyperlipidemia: Code(s): E78.5 - Hyperlipidemia, unspecified Status: Acute Assessment and Plan: on statin (5) Diminished pulses in lower extremity: Code(s): R09.89 - Other specified symptoms and signs involving the circulatory and respiratory systems Status: Acute Assessment and Plan: bilateral lower extremity arterial Doppler Subjective Date/time seen: 07/20/20 10:39 Interval history: Follow-up for: STEMI-acute anterior myocardial infarction Date of service: 07/20/2020 Subjective: Feels much better today. Less short of breath. No chest pain like he had upon presentation. No swelling. Review of Systems Constitutional: Constitutional: Denies excessive sweating, Reports fatigue and Denies headache(s) Eyes: Eyes: Denies blind spots and Denies blurry vision ENT: Reports Normal hearing present, Denies headache(s) and Denies epistaxis Cardiovascular: Cardiovascular: Denies chest pain, Denies rapid heart rate, Denies lightheadedness and Denies palpitations Respiratory: Respiratory: Reports chest congestion and Reports cough (Clear secretions) Gastrointestinal: Gastrointestinal: Denies abdominal pain and Denies heartburn Genitourinary: Genitourinary: Denies hematuria Musculoskeletal: Musculoskeletal: Denies abnormal gait, Denies back pain, Denies myalgias and Denies numbness Integumentary/Breasts: Skin/Breast: Denies unusual bruising Neurologic: Reports Normal hearing present, Denies Abnormal speech present, Denies abnormal gait, Denies headache(s) and Denies numbness Psychiatric: Psychiatric: Denies anxiety and Denies depression Endocrine: Endocrine: Denies excessive sweating, Reports fatigue and Denies palpitations Hematologic/Lymphatic: Hematologic/Lymphatic: Denies easy bleeding and Denies easy bruising Allergic/Immunologic: Allergic/Immunologic: Denies GI upset with certain foods Exam Const: General: cooperative and no acute distress Nutritional Appearance: overweigh
[2020-07-20] MEDS: FUROSEMIDE 20 MG TABLET PO (13:38)
[2020-07-21] VITALS (8 sets, daily range): BP systolic 104–122; BP diastolic 69–74; PULSE 84–93; RESP 16; TEMP 36.2–36.6; O2SAT 95–96
[2020-07-21] MEDS: ASPIRIN 81 MG CHEWABLE TABLET PO (08:36)
[2020-07-21] MEDS: carvediloL 6.25 MG TABLET PO (08:37)
[2020-07-21] MEDS: PANTOPRAZOLE 40 MG TABLET PO (08:38)
[2020-07-21] MEDS: FUROSEMIDE 20 MG TABLET PO (08:38)
[2020-07-21] MEDS: TICAGRELOR 90 MG TABLET PO (08:39)
[2020-07-21] MEDS: ROSUVASTATIN 10 MG TABLET 20 MG PO (08:39)
[2020-07-21] MEDS: LOSARTAN POTASSIUM 12.5 MG TABLET PO (08:40)
--- NOTE | 2020-07-21 09:42 | PM.DS ---
DS: Admitting Diagnosis Admitting Diagnosis Admitting Diagnosis: ST-elevation myocardial infarction DS: Discharge Diagnosis Discharge Diagnosis (1) ST elevation (STEMI) myocardial infarction: Qualifiers: Involved coronary artery: unspecified coronary artery Qualified Code(s): I21.3 - ST elevation (STEMI) myocardial infarction of unspecified site Code(s): I21.3 - ST elevation (STEMI) myocardial infarction of unspecified site Status: Acute (2) Hyperlipidemia: Code(s): E78.5 - Hyperlipidemia, unspecified Status: Acute (3) Ischemic cardiomyopathy: Code(s): I25.5 - Ischemic cardiomyopathy Status: Acute (4) Acute systolic (congestive) heart failure: Code(s): I50.21 - Acute systolic (congestive) heart failure Status: Acute DS: Summary Hospital Course Hospital Course: 64-year-old admitted for STEMI. Underwent drug-eluting stent to the ostial LAD. Moderate ischemic cardiomyopathy noted with acute systolic heart failure treated appropriately with beta blockade, ARB, aspirin, Brilinta, furosemide, statin. Groin was stable at discharge. Time Spent with Patient Time attestation: Total time spent examining patient, providing and/or coordinating discharge services: 38 minutes Patient is a 64-year-old male previously healthy who presented with acute ST segment elevation myocardial infarction due to a an ostial LAD occlusion. He was taken to the cardiac catheterization lab emergently by Dr. Mantilla. Results are as below but the patient did receive a 3.5 x 23 mm drug-eluting stent restoring LAYA 3 flow. Patient did sustain significant myocardial injury however. Echocardiogram shows ejection fraction of 35-40%. He did go into a little bit of heart failure with volume overload during his hospitalization requiring IV diuretics which did improve his symptoms. He will go home on low-dose oral diuretic. He also had some reperfusion ventricular tachycardia which did settle down with beta blockade and time. A discharge he had no ventricular ectopy overnight. Did have frequent PACs but no ventricular arrhythmia. He was up ambulating without problems. Feels well and wants to go home. Denies any chest pain. Shortness of breath, syncope, presyncope, paroxysmal nocturnal dyspnea, orthopnea, edema or groin problems Exam Narrative: Exam Narrative: Alert oriented appears to be in no acute distress Musculoskeletal: No reproducible chest wall pain to palpation Const: General: comfortable HENMT: General nose exam: Normal nares present Eyes: Sclera: sclerae normal Neck: Neck: supple and no JVD Resp: Auscultation: clear to auscultation bilaterally Cardio: Rate: regular rate Rhythm: regular rhythm GI: GI Palp: Yes Soft to palpation and No Tenderness to palpation present (GI) Skin: General skin exam: normal color Neuro: Motor exam (neuro): Normal motor muscle tone present throughout Extrem: General: normal to inspection Psych: Mental Status: mental status grossly normal DS: Data Data Completed and Pending Completed studies during hospitalization: Acute anterior wall myocardial infarction resulting from abrupt thrombotic occlusion of the left anterior descending right at the ostium off the left main. 2. No significant left main circumflex or right coronary disease 3. akinetic hopefully mostly stunned anterior wall with low ejection fraction and high left ventricular filling pressures 4. successful PCI using the 3.5 x 23 mm Debbie stented resulting in excellent patency of the LAD is a very nice angiographic result with LAYA 3 flow restored down to the apex. Imaging My impression: Echocardiogram 1. Left ventricular chamber dimension is normal. 2. Left ventricular systolic function is moderately reduced, estimated at 35-40%. 3. There is mildly increased left ventricular wall thickness. 4. The left ventricular diastolic function is grade II diastolic dysfun
[2020-07-21 10:42] LABS: Anion Gap 4 mmol/L (8-16); Blood Urea Nitrogen 29 mg/dL (9-20); Calcium 8.7 mg/dL (8.4-10.2); Carbon Dioxide 28 mmol/L (22-30); Chloride 105 mmol/L (98-107); Estimated CRCL calculation 71 ml/min; Estimated Glomerular Filt Rate > 60; Glucose 135 mg/dL (75-110); Magnesium 2.4 mg/dL (1.6-2.3); Potassium 3.5 mmol/L (3.4-5.0); Sodium 137 mmol/L (137-145)
== END 2020-07-21 11:05 | disposition home or self-care (01) | DRG 246 ==
LOC: ANHED 11:30 → ANHICU 11:34 → ANHIMU 07-19 19:02 → ANHICU 07-24 15:22 → ANHIMU 07-24 15:22
PROVIDERS: Nurse Practitioner Adult Health; Admitting Provider Specialist; Emergency Provider Emergency Medicine; Visit Provider Internal Medicine Cardiovascular Disease
PROC: 4A023N7 Measurement of Cardiac Sampling and Pressure, Left Heart, Percutaneous Approach (ICD-10-PCS; CPT 93452; principal; 2020-07-18 11:25)
PROC: 027034Z Dilation of Coronary Artery, One Artery with Drug-eluting Intraluminal Device, Percutaneous Approach (ICD-10-PCS; 2020-07-18 11:25)
DX: I21.09 ST elevation (STEMI) myocardial infarction involving other coronary artery of anterior wall (principal); I50.21 Acute systolic (congestive) heart failure; I97.190 Other postprocedural cardiac functional disturbances following cardiac surgery; I47.2 Ventricular tachycardia; E78.5 Hyperlipidemia, unspecified; I25.5 Ischemic cardiomyopathy
CPT/HCPCS: 36415; 71045; 80048; 80053; 80061; 83735; 84484; 85025; 85027; 85610; 85730; 86850; 86900; 86901; 93005; 93458; 93923; 99285; A9270; C1725; C1757; C1769; C1874; C1887; C1894; C8929; C9606; J0461; J0583; J1644; J1940; J2405; J3475; J7030; J7040; Q9957

== ENCOUNTER 2020-08-23 08:47 | Outpatient (CLI) | payer OTHER, SELFPAY ==
[2020-08-23 09:14] LABS: Cholesterol 118 mg/dL (0-200); HDL Direct 33 mg/dL; Triglycerides 119 mg/dL (<150)
[2020-08-23 09:25] LABS: LDL Cholesterol Direct 59 mg/dL
[2020-08-23 10:27] LABS: Prostate Specific Antigen 2.2 ng/mL (< OR = 4.0)
== END 2020-08-23 08:48 | disposition home or self-care (01) ==
PROVIDERS: PCP Internal Medicine; Visit Provider Nurse Practitioner
DX: E78.5 Hyperlipidemia, unspecified (principal); Z12.5 Encounter for screening for malignant neoplasm of prostate
CPT/HCPCS: 36415; 80061; 84153; G0103

== ENCOUNTER 2020-11-12 07:30 | Outpatient (RCR) | payer OTHER, SELFPAY ==
[2020-08-22 12:23] VITALS: BP 112/60; PULSE 83; RESP 16; TEMP 36.7; O2SAT 99
[2020-08-22 12:25] VITALS: PULSE 84
== END 2020-11-12 12:15 | disposition home or self-care (01) ==
LOC: ANHCPREHAB 07:30
PROVIDERS: PCP Internal Medicine; Visit Provider Specialist
DX: Z95.5 Presence of coronary angioplasty implant and graft (principal); I25.2 Old myocardial infarction
CPT/HCPCS: 93798

== ENCOUNTER 2021-12-17 15:48 | Outpatient (CLI) | payer OTHER, SELFPAY ==
[2021-12-17 16:08] LABS: Basophils Absolute Auto 0.1 K/mm3 (0.0-0.1); Basophils Percent Auto 0.9 % (0.2-1.2); Eosinophils Absolute Auto 0.3 K/mm3 (0-0.3); Eosinophils Percent Auto 4.3 % (0-4.4); Hematocrit 44.8 % (42.0-52.0); Hemoglobin 14.4 g/dL (14.0-18.0); Immature Granulocyte Absolute 0.01 K/mm3 (0.00-0.031); Immature Granulocyte Percent A 0.2 % (0-0.5); Lymphocytes Absolute Auto 1.53 K/mm3 (0.9-3.2); Lymphocytes Percent Auto 23.3 % (18.3-44.2); Mean Corpuscular HGB Conc 32.1 g/dl (32-36); Mean Corpuscular Hemoglobin 28.3 pg (26-34); Mean Corpuscular Volume 88.2 fl (80-100); Mean Platelet Volume 8.9 fl (7.4-10.4); Monocytes Absolute Auto 0.7 K/mm3 (0.1-0.6); Monocytes Percent Auto 10.2 % (2.6-8.5); Neutrophils Percent Auto 61.1 % (45.5-73.1); Platelet Count Result 230 k/mm3 (150-375); Red Blood Count 5.08 M/mm3 (4.6-6.20); Red Cell Distribution Width 12.9 % (11.5-14.5); White Blood Count 6.6 K/mm3 (4.5-10.0)
[2021-12-17 16:19] LABS: Alanine Aminotransferase 20 U/L (6-50); Albumin Level 4.1 g/dL (3.5-5.1); Alkaline Phosphatase 59 U/L (38-126); Anion Gap 9 mmol/L (8-16); Aspartate Amino Transferase 26 U/L (17-59); Bilirubin,Total 1.2 mg/dL (0.2-1.3); Blood Urea Nitrogen 17 mg/dL (9-20); Calcium 8.8 mg/dL (8.4-10.2); Carbon Dioxide 22 mmol/L (22-30); Chloride 104 mmol/L (98-107); Cholesterol 125 mg/dL (0-200); Estimated Glomerular Filt Rate > 60; Glucose 89 mg/dL (65-110); HDL Direct 40 mg/dL; Potassium 3.8 mmol/L (3.4-5.0); Sodium 135 mmol/L (137-145); Triglycerides 59 mg/dL (<150)
[2021-12-17 16:31] LABS: LDL Cholesterol Direct 62 mg/dL
[2021-12-17 16:49] LABS: Prostate Specific Antigen 3.5 ng/mL (< OR = 4.0)
== END 2021-12-17 15:49 | disposition home or self-care (01) ==
LOC: ANHLAB 15:55
PROVIDERS: PCP Internal Medicine; Visit Provider Nurse Practitioner
DX: Z12.5 Encounter for screening for malignant neoplasm of prostate (principal); I25.10 Atherosclerotic heart disease of native coronary artery without angina pectoris
CPT/HCPCS: 36415; 80053; 80061; 84153; 85025; G0103

== ENCOUNTER 2022-06-30 07:02 | Outpatient (CLI) | payer MEDICARE, SELFPAY ==
[2022-06-30 19:01] LABS: Prostate Specific Antigen 2.3 ng/mL (< OR = 4.0)
== END 2022-06-30 07:03 | disposition home or self-care (01) ==
LOC: ANHLAB 07:05
PROVIDERS: PCP Internal Medicine; Visit Provider Clinical Nurse Specialist
DX: Z12.5 Encounter for screening for malignant neoplasm of prostate (principal)
CPT/HCPCS: 36415; 84153; G0103

== ENCOUNTER 2023-05-16 15:56 | Emergency (ER) | payer MEDICARE, OTHER, SELFPAY ==
[2023-05-16 16:10] VITALS: BP 117/74; PULSE 62; RESP 16; TEMP 37; O2SAT 99
--- NOTE | 2023-05-16 16:26 | ED.SKABFB ---
HPI - Skin/Abscess/Foreign Bdy General Chief complaint: Skin/Abscess/Foreign Body Stated complaint: skin irritation Time Seen by Provider: 05/16/23 16:17 Source: patient and RN notes reviewed Mode of arrival: ambulatory Limitations: no limitations History of Present Illness HPI narrative: Patient presents today complaining of a rash to his right flank that is painful. Rash appeared yesterday. Currently rates his pain 5/10 and has tried no medication for symptoms prior to arrival. Related Data Home Medications Medication Instructions Recorded Confirmed losartan 25 mg tablet 12.5 mg PO DAILY 08/22/20 05/16/23 carvedilol 6.25 mg tablet 6.25 mg PO Q12H 12/12/21 05/16/23 aspirin 81 mg chewable tablet 81 mg PO DAILY 05/16/23 05/16/23 Allergies Allergy/AdvReac Type Severity Reaction Status Date / Time No Known Allergies Allergy Verified 05/16/23 16:07 Review of Systems Review of Systems: CONSTITUTIONAL: Denies body aches, fever, chills, or sweats. EYES: Denies visual changes, redness, or discharge. ENT: Denies rhinorrhea, congestion, sore throat, or otalgia. CARDIOVASCULAR: Denies chest pain, palpitations, or edema. RESPIRATORY: Denies cough or dyspnea. GASTROINTESTINAL: Denies abdominal pain, nausea, vomiting, or diarrhea. GENITOURINARY: Denies dysuria or hematuria. SKIN: + rash to right flank MUSCULOSKELETAL: Denies back pain, joint pain, or myalgia. NEUROLOGIC: Denies headache, numbness, tingling, or weakness. PSYCH: Denies depression or anxiety. [facility] Past Medical History Medical History CAD (coronary artery disease) Heart disease Hypotension due to drugs Mixed hyperlipidemia Myocardial infarction 07/18/2020 Surgical History Surgical History S/P coronary artery stent placement Family History Family History Father No problems noted. Other Acute myocardial infarction Social History Social History Smoking status: Never smoker Alcohol intake: current Drinks per week: 1 Substance use: never Substance use type: does not use Gender identity (if verbalized by the patient): Male Spiritual care concerns: No Comments At time of signature, I have reviewed and agree with nursing past medical, surgical, social and family history unless otherwise noted. Please see nursing chart for further information. There is no relevant family history pertinent to the presenting complaint Exam Narrative: GENERAL: Well-appearing, well-nourished, and in no acute distress. HEAD: Normocephalic, atraumatic. EYES: EOMI. No redness or drainage. Conjunctivae normal. ENT: Mucous membranes pink and moist. NECK: Normal AROM. CHEST: No respiratory distress. EXTREMITIES: Normal range of motion. No edema. SKIN: Warm, dry. Capillary refill normal. Normal skin turgor. Two quarter-sized erythematous clusters of vesicles to the right lateral flank. NEURO: No focal deficits. Alert and oriented x3. Gait steady. PSYCH: Normal affect. No signs of depression or anxiety. Course Course Level of Care: Express Care Visit Vital Signs Vital signs: Vital Signs Temperature 98.6 F 05/16/23 16:10 Pulse Rate 62 05/16/23 16:10 Respiratory Rate 16 05/16/23 16:10 Blood Pressure 117/74 05/16/23 16:10 Pulse Oximetry 99 05/16/23 16:10 Oxygen Delivery Room Air 05/16/23 16:10 Temperature 98.6 F 05/16/23 16:10 Pulse Rate 62 05/16/23 16:10 Respiratory Rate 16 05/16/23 16:10 Blood Pressure 117/74 05/16/23 16:10 Pulse Oximetry 99 05/16/23 16:10 Oxygen Delivery Room Air 05/16/23 16:10 Reviewed MDM - Skin/Abscess/Foreign Bdy MDM Narrative Medical decision making narrative: Exam consistent with shingles. Will treat with lexii
== END 2023-05-16 16:33 | disposition home or self-care (01) ==
PROVIDERS: Emergency Provider Nurse Practitioner; PCP Internal Medicine
DX: B02.9 Zoster without complications (principal); I25.10 Atherosclerotic heart disease of native coronary artery without angina pectoris; E78.2 Mixed hyperlipidemia; I25.2 Old myocardial infarction; Z95.5 Presence of coronary angioplasty implant and graft; Z79.82 Long term (current) use of aspirin
CPT/HCPCS: 99213; G0463

== ENCOUNTER 2023-07-06 07:34 | Outpatient (CLI) | payer MEDICARE, OTHER, SELFPAY ==
[2023-07-06 08:06] LABS: Basophils Percent Auto 0.7 % (0.2-1.2); Eosinophils Absolute Auto 0.6 K/mm3 (0-0.3); Hematocrit 50.5 % (42.0-52.0); Hemoglobin 16.2 g/dL (14.0-18.0); Immature Granulocyte Absolute 0.02 K/mm3 (0.00-0.031); Immature Granulocyte Percent A 0.4 % (0-0.5); Lymphocytes Absolute Auto 1.34 K/mm3 (0.9-3.2); Lymphocytes Percent Auto 24.2 % (18.3-44.2); Mean Corpuscular HGB Conc 32.1 g/dl (32-36); Mean Corpuscular Hemoglobin 28.9 pg (26-34); Mean Platelet Volume 8.6 fl (7.4-10.4); Monocytes Absolute Auto 0.5 K/mm3 (0.1-0.6); Monocytes Percent Auto 9.8 % (2.6-8.5); Neutrophils Percent Auto 53.9 % (45.5-73.1); Platelet Count Result 188 k/mm3 (150-375); Red Blood Count 5.61 M/mm3 (4.6-6.20); Red Cell Distribution Width 12.8 % (11.5-14.5); White Blood Count 5.5 K/mm3 (4.5-10.0)
[2023-07-06 11:28] LABS: Alanine Aminotransferase 28 U/L (6-50); Alkaline Phosphatase 49 U/L (38-126); Anion Gap 7 mmol/L (8-16); Aspartate Amino Transferase 28 U/L (17-59); Bilirubin,Total 1.1 mg/dL (0.2-1.3); Blood Urea Nitrogen 19 mg/dL (9-20); Calcium 9.2 mg/dL (8.4-10.2); Carbon Dioxide 26 mmol/L (22-30); Chloride 106 mmol/L (98-107); Cholesterol 149 mg/dL (0-200); Estimated Glomerular Filt Rate > 60; Glucose 103 mg/dL (65-110); HDL Direct 39 mg/dL; Potassium 3.9 mmol/L (3.4-5.0); Sodium 139 mmol/L (137-145); Triglycerides 88 mg/dL (<150)
[2023-07-06 11:39] LABS: LDL Cholesterol Direct 91 mg/dL
[2023-07-06 12:56] LABS: Prostate Specific Antigen 1.9 ng/mL (< OR = 4.0)
== END 2023-07-06 07:35 | disposition home or self-care (01) ==
PROVIDERS: PCP Internal Medicine; Visit Provider Clinical Nurse Specialist
DX: Z12.5 Encounter for screening for malignant neoplasm of prostate (principal); I50.21 Acute systolic (congestive) heart failure; Z13.228 Encounter for screening for other metabolic disorders; I21.3 ST elevation (STEMI) myocardial infarction of unspecified site
CPT/HCPCS: 36415; 80053; 80061; 84153; 85025; G0103